=== PATIENT | female | born 1935 | race Caucasian/White ===

== ENCOUNTER 2021-03-12 13:59 | Inpatient (IN) | payer MEDICARE, OTHER ==
[~2021-03-12] VITALS: Ht 167.6 cm; Wt 71.1 kg
[2021-03-12 16:07] LABS: Basophils # (auto) 0 10 ^3/uL (0-0.2); Basophils % (auto) 0.3 % (0.0-2.0); Eosinophils # (auto) 0 10 ^3/uL (0-0.8); Eosinophils % (auto) 0.1 % (0.0-7.0); Hematocrit 35.2 % (36.0-46.0); Hemoglobin 11.6 g/dL (12.2-16.2); Lymphocytes # (auto) 0.6 10 ^3/uL (0.4-5.4); Mean Corpuscular Hgb Conc. 33.1 g/dL (32.0-36.0); Mean Corpuscular Volume 93.7 fL (80.0-100.0); Monocytes % (auto) 9.9 % (0.0-12.0); Neutrophils # (auto) 8.2 10 ^3/uL (1.6-8.6); Neutrophils % (auto) 83.7 % (37.0-80.0); Red Blood Cells 3.76 10^6/uL (4.0-5.20); Red Cell Distribution Width 14.1 % (11.8-14.3); White Blood Cell 9.8 10^3/uL (4.4-10.8)
[2021-03-12 16:23] LABS: Albumin 3.5 g/dL (3.4-5.0); Calcium 9.6 mg/dL (8.5-10.1); Magnesium 2.7 mg/dL (1.6-2.6); Potassium 4.5 mmol/L (3.5-5.1)
[2021-03-12 16:31] LABS: BUN/Creatinine Ratio 35.2; Bilirubin, Total 1.3 mg/dL (0.2-1.0); Total Protein 7.4 g/dL (6.4-8.2)
[2021-03-12] MEDS ORDERED: DEXTROSE (50%) 50ML SYRG IV PRN (21:00)
[2021-03-12] MEDS ORDERED: TEMAZEPAM 15 MG CAP PO PRN (21:00)
[2021-03-12] MEDS ORDERED: ONDANSETRON HCL 4 MG/2 ML VIAL IV PRN (21:00)
[2021-03-12] MEDS: ATORVASTATIN 20 MG TAB PO SCH (22:00)
[2021-03-12] MEDS: CARVEDILOL 3.125 MG TAB PO SCH (22:00)
[2021-03-12] MEDS: TICAGRELOR 60 MG TAB PO SCH (22:00)
[2021-03-12] MEDS: ACCU-CHEK COMFORT CURVE STRIP VI SCH (22:30)
[2021-03-13] MEDS ORDERED: HALOPERIDOL LACTATE 5 MG/ML INJ VIAL IM ONE
[2021-03-13] MEDS ORDERED: HALOPERIDOL LACTATE 5 MG/ML INJ VIAL ONE (00:02)
[2021-03-13] MEDS: InsuLIN REG 1unit/0.01ml Soln (100units/ml) SC SCH ×4 (00:45→16:39)
[2021-03-13] MEDS ORDERED: LORazepam 2MG/ML-1ML VIAL ONE (06:18)
[2021-03-13] MEDS ORDERED: LORazepam 2MG/ML-1ML VIAL IM ONE (06:20)
[2021-03-13] MEDS ORDERED: dilTIAZem 25 MG/5 ML VIAL IV ONE (06:45)
[2021-03-13] MEDS: LEVOTHYROXINE SODIUM 50 MCG TAB PO SCH (07:00)
[2021-03-13] MEDS: ACCU-CHEK COMFORT CURVE STRIP VI SCH ×3 (07:29→16:38)
[2021-03-13 07:32] LABS: Basophils # (auto) 0 10 ^3/uL (0-0.2); Basophils % (auto) 0.3 % (0.0-2.0); Eosinophils # (auto) 0 10 ^3/uL (0-0.8); Eosinophils % (auto) 0.1 % (0.0-7.0); Hematocrit 35.4 % (36.0-46.0); Hemoglobin 11.9 g/dL (12.2-16.2); Lymphocytes # (auto) 0.9 10 ^3/uL (0.4-5.4); Lymphocytes % (auto) 7.3 % (10.0-50.0); Mean Corpuscular Hemoglobin 31.6 pg (28.0-32.0); Mean Corpuscular Hgb Conc. 33.5 g/dL (32.0-36.0); Mean Corpuscular Volume 94.4 fL (80.0-100.0); Monocytes # (auto) 1.1 10 ^3/uL (0-1.3); Monocytes % (auto) 8.9 % (0.0-12.0); Neutrophils # (auto) 9.9 10 ^3/uL (1.6-8.6); Neutrophils % (auto) 83.4 % (37.0-80.0); Red Blood Cells 3.75 10^6/uL (4.0-5.20); Red Cell Distribution Width 14.2 % (11.8-14.3); White Blood Cell 11.9 10^3/uL (4.4-10.8)
[2021-03-13 07:35] LABS: BUN/Creatinine Ratio 29.5; Calcium 9.7 mg/dL (8.5-10.1); Potassium 4.5 mmol/L (3.5-5.1)
[2021-03-13] MEDS: TICAGRELOR 60 MG TAB PO SCH ×2 (12:14→22:00)
[2021-03-13] MEDS: PANTOPRAZOLE 40 MG TAB PO SCH (12:14)
[2021-03-13] MEDS: CARVEDILOL 3.125 MG TAB PO SCH ×2 (12:14→22:00)
[2021-03-13] MEDS: LISINOPRIL 10 MG TAB PO SCH (12:14)
[2021-03-13] MEDS ORDERED: SODIUM CHLORIDE 0.9% 1,000 ML IV ONE (13:15)
[2021-03-13] MEDS ORDERED: LORazepam 2MG/ML-1ML VIAL IV ONE (13:15)
[2021-03-13] MEDS ORDERED: cefTRIAXone 1GM/50ML D5W 50 ML IV ONE (15:00)
[2021-03-13 15:11] LABS: Lactic Acid w/Reflex 3.6 mmol/L (0.4-2.0)
[2021-03-13 15:25] LABS: Urine Bacteria NONE SEEN /hpf (None Seen); Urine Blood TRACE /uL (Negative); Urine Hyaline Cast FEW /lpf (0 - 2); Urine Mucus FEW (None Seen); Urine WBC 1 /hpf (0 - 5)
[2021-03-13] MEDS: SODIUM CHLORIDE 0.9% 1,000 ML IV SCH ×2 (15:29→23:15)
[2021-03-13] MEDS ORDERED: LEVO50TA7 PO (19:19)
[2021-03-13] MEDS ORDERED: ASPI-498 OR (19:19)
[2021-03-13] MEDS ORDERED: CARV3.1240 PO (19:19)
[2021-03-13] MEDS ORDERED: INSU100I61 SC (19:19)
[2021-03-13] MEDS ORDERED: LISI20TA28 PO (19:19)
[2021-03-13] MEDS ORDERED: ATOR10TA52 PO (19:19)
[2021-03-13] MEDS ORDERED: PANT40T PO (19:19)
[2021-03-13] MEDS ORDERED: CALC-239 PO (19:24)
[2021-03-13] MEDS ORDERED: TRAM50TA2 PO (19:24)
[2021-03-13] MEDS ORDERED: CYAN1TAB11 PO (19:24)
[2021-03-13] MEDS ORDERED: LEVEMIR SC (19:24)
[2021-03-13] MEDS ORDERED: LACTCAP35 OR (19:24)
[2021-03-13] MEDS: ATORVASTATIN 20 MG TAB PO SCH (22:00)
[2021-03-14] MEDS: InsuLIN REG 1unit/0.01ml Soln (100units/ml) SC SCH ×5 (00:13→21:58)
[2021-03-14] MEDS: ACCU-CHEK COMFORT CURVE STRIP VI SCH ×5 (00:19→21:59)
[2021-03-14] MEDS: LEVOTHYROXINE SODIUM 50 MCG TAB PO SCH (07:00)
[2021-03-14 08:00] VITALS: BP 147/66
[2021-03-14] MEDS: cefTRIAXone 1GM/50ML D5W 50 ML IV SCH (09:03)
[2021-03-14] MEDS: PANTOPRAZOLE 40 MG TAB PO SCH (09:03)
[2021-03-14] MEDS: LISINOPRIL 10 MG TAB PO SCH (09:10)
[2021-03-14] MEDS: CARVEDILOL 3.125 MG TAB PO SCH ×2 (09:10→21:57)
[2021-03-14] MEDS: TICAGRELOR 60 MG TAB PO SCH ×2 (10:00→21:57)
[2021-03-14] MEDS: SODIUM CHLORIDE 0.9% 1,000 ML IV SCH ×2 (12:35→17:54)
[2021-03-14 14:08] VITALS: BP 134/63
[2021-03-14 16:20] VITALS: BP 138/68
[2021-03-14] MEDS: ACETAMINOPHEN 325 MG TAB PO PRN (16:28)
[2021-03-14] MEDS: ATORVASTATIN 20 MG TAB PO SCH (21:58)
[2021-03-14 22:00] VITALS: BP 104/58
[2021-03-15] MEDS: SODIUM CHLORIDE 0.9% 1,000 ML IV SCH ×4 (03:43→19:40)
[2021-03-15 05:00] VITALS: BP 108/64
[2021-03-15] MEDS: LEVOTHYROXINE SODIUM 50 MCG TAB PO SCH (05:55)
[2021-03-15] MEDS: InsuLIN REG 1unit/0.01ml Soln (100units/ml) SC SCH ×4 (05:55→22:50)
[2021-03-15] MEDS: ACCU-CHEK COMFORT CURVE STRIP VI SCH ×4 (05:56→22:21)
[2021-03-15 09:00] VITALS: BP 153/67
[2021-03-15] MEDS: cefTRIAXone 1GM/50ML D5W 50 ML IV SCH (09:35)
[2021-03-15] MEDS: ACETAMINOPHEN 325 MG TAB PO PRN ×2 (09:37→17:11)
[2021-03-15] MEDS: PANTOPRAZOLE 40 MG TAB PO SCH (09:37)
[2021-03-15] MEDS: CARVEDILOL 3.125 MG TAB PO SCH ×2 (09:37→22:00)
[2021-03-15] MEDS: LISINOPRIL 10 MG TAB PO SCH (09:39)
[2021-03-15] MEDS: TICAGRELOR 60 MG TAB PO SCH ×2 (10:00→22:00)
[2021-03-15] MEDS: HYDROcodone-ACET 5/325MG TAB PO PRN (11:59)
[2021-03-15 13:00] VITALS: BP 134/58
[2021-03-15 16:59] VITALS: BP 145/69
[2021-03-15] MEDS: ATORVASTATIN 20 MG TAB PO SCH (22:00)
[2021-03-15 22:08] VITALS: BP 166/78
[2021-03-16] MEDS: SODIUM CHLORIDE 0.9% 1,000 ML IV SCH ×3 (02:20→11:32)
[2021-03-16 05:00] VITALS: BP 144/67
[2021-03-16] MEDS: LEVOTHYROXINE SODIUM 50 MCG TAB PO SCH (05:51)
[2021-03-16] MEDS: ACCU-CHEK COMFORT CURVE STRIP VI SCH ×4 (05:52→22:39)
[2021-03-16] MEDS: InsuLIN REG 1unit/0.01ml Soln (100units/ml) SC SCH ×4 (05:57→22:57)
[2021-03-16 07:48] VITALS: BP 165/76
[2021-03-16] MEDS: cefTRIAXone 1GM/50ML D5W 50 ML IV SCH (09:29)
[2021-03-16] MEDS: CARVEDILOL 3.125 MG TAB PO SCH ×2 (09:30→22:00)
[2021-03-16] MEDS: PANTOPRAZOLE 40 MG TAB PO SCH (09:30)
[2021-03-16] MEDS: LISINOPRIL 10 MG TAB PO SCH (09:31)
[2021-03-16] MEDS: TICAGRELOR 60 MG TAB PO SCH ×2 (09:45→22:00)
[2021-03-16] MEDS: MORPHINE SULFATE INJECTION 2 MG/ML SYRG IV PRN (11:31)
[2021-03-16 12:25] VITALS: BP 163/56
[2021-03-16] MEDS: cloNIDine HCL 0.1 MG TAB PO PRN (14:59)
[2021-03-16] MEDS: ACETAMINOPHEN 325 MG TAB PO PRN (15:00)
[2021-03-16 17:00] VITALS: BP 144/67
[2021-03-16 21:42] VITALS: BP 142/66
[2021-03-16] MEDS: ATORVASTATIN 20 MG TAB PO SCH (22:00)
[2021-03-17] MEDS: SODIUM CHLORIDE 0.9% 1,000 ML IV SCH ×2 (05:00→05:26)
[2021-03-17 05:12] VITALS: BP 157/78
[2021-03-17] MEDS: LEVOTHYROXINE SODIUM 50 MCG TAB PO SCH (06:14)
[2021-03-17] MEDS: InsuLIN REG 1unit/0.01ml Soln (100units/ml) SC SCH ×4 (06:15→22:05)
[2021-03-17] MEDS: ACCU-CHEK COMFORT CURVE STRIP VI SCH ×4 (06:15→21:57)
[2021-03-17 08:35] VITALS: BP 164/81
[2021-03-17] MEDS: cefTRIAXone 1GM/50ML D5W 50 ML IV SCH (10:26)
[2021-03-17] MEDS: LISINOPRIL 10 MG TAB PO SCH (10:27)
[2021-03-17] MEDS: CARVEDILOL 3.125 MG TAB PO SCH ×3 (10:27→22:56)
[2021-03-17] MEDS: PANTOPRAZOLE 40 MG TAB PO SCH (10:27)
[2021-03-17] MEDS: TICAGRELOR 60 MG TAB PO SCH ×2 (10:30→22:39)
[2021-03-17] MEDS: MORPHINE SULFATE INJECTION 2 MG/ML SYRG IV PRN (10:35)
[2021-03-17 12:05] VITALS: BP 147/76
[2021-03-17] MEDS: HYDROcodone-ACET 5/325MG TAB PO PRN (20:57)
[2021-03-17] MEDS: ATORVASTATIN 20 MG TAB PO SCH (21:56)
[2021-03-17 22:01] VITALS: BP 147/78
[2021-03-18 05:24] VITALS: BP 162/79
[2021-03-18] MEDS: cloNIDine HCL 0.1 MG TAB PO PRN (05:26)
[2021-03-18] MEDS: InsuLIN REG 1unit/0.01ml Soln (100units/ml) SC SCH ×4 (06:23→21:50)
[2021-03-18] MEDS: ACCU-CHEK COMFORT CURVE STRIP VI SCH ×4 (06:23→22:00)
[2021-03-18] MEDS: LEVOTHYROXINE SODIUM 50 MCG TAB PO SCH (06:23)
[2021-03-18 08:30] VITALS: BP 159/103
[2021-03-18] MEDS: TICAGRELOR 60 MG TAB PO SCH ×3 (10:00→22:00)
[2021-03-18] MEDS: PANTOPRAZOLE 40 MG TAB PO SCH (11:02)
[2021-03-18] MEDS: cefTRIAXone 1GM/50ML D5W 50 ML IV SCH (11:02)
[2021-03-18] MEDS: CARVEDILOL 3.125 MG TAB PO SCH ×2 (11:02→22:00)
[2021-03-18] MEDS: LISINOPRIL 10 MG TAB PO SCH (11:03)
[2021-03-18 12:30] VITALS: BP 140/80
[2021-03-18 17:00] VITALS: BP 156/75
[2021-03-18] MEDS: ATORVASTATIN 20 MG TAB PO SCH (22:00)
[2021-03-19 05:00] VITALS: BP 153/70
[2021-03-19] MEDS: LEVOTHYROXINE SODIUM 50 MCG TAB PO SCH (06:26)
[2021-03-19] MEDS: ACCU-CHEK COMFORT CURVE STRIP VI SCH ×4 (06:27→21:03)
[2021-03-19] MEDS: InsuLIN REG 1unit/0.01ml Soln (100units/ml) SC SCH ×4 (06:30→21:08)
[2021-03-19] MEDS: cloNIDine HCL 0.1 MG TAB PO PRN ×2 (06:34→10:21)
[2021-03-19 09:00] VITALS: BP 117/49
[2021-03-19] MEDS: cefTRIAXone 1GM/50ML D5W 50 ML IV SCH (09:00)
[2021-03-19] MEDS: TICAGRELOR 60 MG TAB PO SCH ×2 (10:22→21:02)
[2021-03-19] MEDS: CARVEDILOL 3.125 MG TAB PO SCH ×2 (10:30→21:03)
[2021-03-19] MEDS: LISINOPRIL 10 MG TAB PO SCH (10:30)
[2021-03-19] MEDS: PANTOPRAZOLE 40 MG TAB PO SCH (10:30)
[2021-03-19] MEDS: ACETAMINOPHEN 325 MG TAB PO PRN (16:12)
[2021-03-19] MEDS: ATORVASTATIN 20 MG TAB PO SCH (21:03)
[2021-03-19 22:08] VITALS: BP 142/58
[2021-03-20] MEDS: HYDROcodone-ACET 5/325MG TAB PO PRN (00:46)
[2021-03-20 05:00] VITALS: BP 157/86
[2021-03-20] MEDS: LEVOTHYROXINE SODIUM 50 MCG TAB PO SCH (05:41)
[2021-03-20] MEDS: ACCU-CHEK COMFORT CURVE STRIP VI SCH ×4 (06:10→22:24)
[2021-03-20] MEDS: InsuLIN REG 1unit/0.01ml Soln (100units/ml) SC SCH ×4 (06:11→22:24)
[2021-03-20] MEDS: cefTRIAXone 1GM/50ML D5W 50 ML IV SCH (08:40)
[2021-03-20 10:00] VITALS: BP 176/73
[2021-03-20 10:08] VITALS: BP 176/73
[2021-03-20] MEDS: LISINOPRIL 10 MG TAB PO SCH (10:25)
[2021-03-20] MEDS: PANTOPRAZOLE 40 MG TAB PO SCH (10:25)
[2021-03-20] MEDS: CARVEDILOL 3.125 MG TAB PO SCH (10:25)
[2021-03-20] MEDS: TICAGRELOR 60 MG TAB PO SCH ×2 (10:26→22:12)
[2021-03-20 14:00] VITALS: BP 117/44
[2021-03-20 21:59] VITALS: BP 120/52
[2021-03-20] MEDS: ATORVASTATIN 20 MG TAB PO SCH (22:12)
[2021-03-21 04:46] VITALS: BP 122/55
[2021-03-21] MEDS: LEVOTHYROXINE SODIUM 50 MCG TAB PO SCH (06:26)
[2021-03-21] MEDS: InsuLIN REG 1unit/0.01ml Soln (100units/ml) SC SCH ×4 (06:26→22:40)
[2021-03-21] MEDS: ACCU-CHEK COMFORT CURVE STRIP VI SCH ×4 (06:27→22:40)
[2021-03-21 06:52] LABS: Basophils # (auto) 0 10 ^3/uL (0-0.2); Basophils % (auto) 0.3 % (0.0-2.0); Eosinophils # (auto) 0.1 10 ^3/uL (0-0.8); Eosinophils % (auto) 1.8 % (0.0-7.0); Hematocrit 29.7 % (36.0-46.0); Hemoglobin 10.1 g/dL (12.2-16.2); Lymphocytes # (auto) 0.8 10 ^3/uL (0.4-5.4); Lymphocytes % (auto) 10.3 % (10.0-50.0); Mean Corpuscular Hemoglobin 31.2 pg (28.0-32.0); Mean Corpuscular Hgb Conc. 34.2 g/dL (32.0-36.0); Mean Corpuscular Volume 91.4 fL (80.0-100.0); Monocytes # (auto) 0.8 10 ^3/uL (0-1.3); Monocytes % (auto) 11.1 % (0.0-12.0); Neutrophils # (auto) 5.7 10 ^3/uL (1.6-8.6); Neutrophils % (auto) 76.5 % (37.0-80.0); Nucleated Red Blood Cells % 0.1 %; Red Blood Cells 3.25 10^6/uL (4.0-5.20); Red Cell Distribution Width 13.7 % (11.8-14.3); White Blood Cell 7.5 10^3/uL (4.4-10.8)
[2021-03-21 07:19] LABS: Potassium 3.7 mmol/L (3.5-5.1)
[2021-03-21 07:23] LABS: BUN/Creatinine Ratio 28.3; Calcium 8.8 mg/dL (8.5-10.1)
[2021-03-21] MEDS: cefTRIAXone 1GM/50ML D5W 50 ML IV SCH (08:48)
[2021-03-21] MEDS: PANTOPRAZOLE 40 MG TAB PO SCH (08:52)
[2021-03-21] MEDS: LISINOPRIL 10 MG TAB PO SCH (08:52)
[2021-03-21] MEDS: CARVEDILOL 3.125 MG TAB PO SCH ×3 (08:54→22:11)
[2021-03-21] MEDS: TICAGRELOR 60 MG TAB PO SCH ×2 (08:54→22:10)
[2021-03-21 09:00] VITALS: BP 156/67
[2021-03-21] MEDS: ACETAMINOPHEN 325 MG TAB PO PRN (12:08)
[2021-03-21] MEDS ORDERED: ENOXAPARIN SOD 30 MG/0.3 ML SYRINGE SC ONE (12:15)
[2021-03-21 13:00] VITALS: BP 138/60
[2021-03-21 17:00] VITALS: BP 152/65
[2021-03-21 22:00] VITALS: BP 153/73
[2021-03-21] MEDS: ATORVASTATIN 20 MG TAB PO SCH (22:11)
[2021-03-22] MEDS: MORPHINE SULFATE INJECTION 2 MG/ML SYRG IV PRN (01:39)
[2021-03-22 06:00] VITALS: BP 163/90
[2021-03-22] MEDS: InsuLIN REG 1unit/0.01ml Soln (100units/ml) SC SCH ×3 (06:35→17:45)
[2021-03-22] MEDS: ACCU-CHEK COMFORT CURVE STRIP VI SCH ×3 (06:35→17:44)
[2021-03-22] MEDS ORDERED: LEVOTHYROXINE SODIUM 50 MCG TAB PO SCH (07:00)
[2021-03-22 09:28] VITALS: BP 165/79
[2021-03-22] MEDS: ACETAMINOPHEN 325 MG TAB PO PRN (09:49)
[2021-03-22] MEDS: PANTOPRAZOLE 40 MG TAB PO SCH (09:49)
[2021-03-22] MEDS: CARVEDILOL 3.125 MG TAB PO SCH (09:49)
[2021-03-22] MEDS: LISINOPRIL 10 MG TAB PO SCH (09:50)
[2021-03-22] MEDS: TICAGRELOR 60 MG TAB PO SCH (09:50)
[2021-03-22] MEDS ORDERED: ENOXAPARIN SOD 30 MG/0.3 ML SYRINGE SC SCH (10:00)
[2021-03-22 14:34] VITALS: BP 114/41
[2021-03-23] MEDS ORDERED: LISINOPRIL 10 MG TAB PO SCH (10:00)
== END 2021-03-22 17:30 | disposition hospice, home (50) | DRG 543 ==
LOC: ER 13:59 → EDUNIT# 13:59 → EDBD 13:59 → CENTRAL 18:21 → OVERFLOW 20:59 → CENTRAL 03-13 17:50 → WEST WING 03-17 15:27
PROVIDERS: ADMIT Nurse Practitioner; ATTEND Internal Medicine
DX: M48.56XA Collapsed vertebra, not elsewhere classified, lumbar region, initial encounter for fracture (principal); N39.0 Urinary tract infection, site not specified; E11.9 Type 2 diabetes mellitus without complications; E86.0 Dehydration; E03.9 Hypothyroidism, unspecified; E78.5 Hyperlipidemia, unspecified; I11.0 Hypertensive heart disease with heart failure; I50.9 Heart failure, unspecified; G89.29 Other chronic pain; Z20.822 Contact with and (suspected) exposure to COVID-19; I25.10 Atherosclerotic heart disease of native coronary artery without angina pectoris; Z91.81 History of falling; Z88.2 Allergy status to sulfonamides; Z90.49 Acquired absence of other specified parts of digestive tract; I25.2 Old myocardial infarction; Z86.73 Personal history of transient ischemic attack (TIA), and cerebral infarction without residual deficits; Z90.710 Acquired absence of both cervix and uterus; W18.39XA Other fall on same level, initial encounter; Y93.89 Activity, other specified; Y92.89 Other specified places as the place of occurrence of the external cause; Y99.8 Other external cause status
CPT/HCPCS: 36415; 70450; 71045; 72131; 72192; 80048; 80053; 81001; 82962; 83036; 83605; 83735; 84439; 84443; 84484; 85025; 87086; 87426; 93005; 96361; 96365; 96372; 96375; 97110; 97116; 97163; 97530; G0378; J0696; J1815